=== PATIENT | male | born 1980 | race Caucasian/White ===

== ENCOUNTER 2016-11-01 16:04 | Emergency (ER) | payer SELFPAY ==
[2016-11-01] MEDS ORDERED: KETOROLAC 30 MG/ML VIAL IM ONE (17:02)
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
== END 2016-11-01 17:40 | disposition home or self-care (01) ==
LOC: ER 16:04
DX: M54.16 Radiculopathy, lumbar region (principal)
CPT/HCPCS: 99283 ×2; 96372; J1885